=== PATIENT | male | born 1985 | race Caucasian/White ===

== ENCOUNTER 2022-08-15 14:00 | Emergency (ER) | payer OTHER ==
[2022-08-15 15:18] VITALS: TEMP 98.5
--- NOTE | 2022-08-15 16:54 | XR ---
EXAMINATION TYPE: XR knee complete LT DATE OF EXAM: 08/15/2022 4:46 PM INDICATION: Patient age:Male; 37 years old; Reason for study: knee pain post fall; COMPARISON: None. TECHNIQUE: The Left knee(s) was examined in Frontal, lateral and oblique projections. FINDINGS: No evidence of any acute osseous pathology, joint space narrowing, soft tissue swelling, or joint effusion is noted. IMPRESSION: 1. No acute osseous pathology. .
--- NOTE | 2022-08-15 17:55 | ED ---
General Adult HPI - General Chief complaint: Head Injury Stated complaint: fall - head injury Time Seen by Provider: 08/15/22 16:11 Source: patient Mode of arrival: ambulatory Limitations: no limitations - History of Present Illness Initial comments: Patient is a 37-year-old male presenting for evaluation of fall that occurred yesterday. Patient states that when he was getting out of the shower he slipped and hit his head on the toilet. Patient admits to brief loss of consciousness and a laceration to scalp. At time of presentation laceration is not bleeding, fully scabbed over. Patient is also complaining of pain to the left knee. No use of blood thinners. No nausea, vomiting, dizziness, neck pain or stiffness, numbness, tingling, weakness, difficulty with ambulation, vision or hearing changes, chest pain, difficulty breathing, abdominal pain, joint swelling. - Related Data Allergies Allergy/AdvReac Type Severity Reaction Status Date / Time No Known Allergies Allergy Verified 08/15/22 15:18 Review of Systems ROS Statement: Those systems with pertinent positive or pertinent negative responses have been documented in the HPI. ROS Other: All systems not noted in ROS Statement are negative. Past Medical History Past Medical History: Asthma History of Any Multi-Drug Resistant Organisms: None Reported Past Surgical History: No Surgical Hx Reported Past Psychological History: No Psychological Hx Reported Smoking Status: Current every day smoker Past Alcohol Use History: None Reported Past Drug Use History: None Reported General Exam Limitations: no limitations General appearance: alert, in no apparent distress Expanded Head exam: Present: laceration (One-inch laceration to the scalp). Absent: raccoon eyes, ayala's sign Eye exam: Present: normal appearance, PERRL, EOMI. Absent: scleral icterus, conjunctival injection, periorbital swelling Pupils: Present: normal accommodation Neck exam: Present: normal inspection, full ROM. Absent: tenderness Respiratory exam: Present: normal lung sounds bilaterally. Absent: respiratory distress, wheezes, rales, rhonchi, stridor Cardiovascular Exam: Present: regular rate, normal rhythm, normal heart sounds. Absent: systolic murmur, diastolic murmur, rubs, gallop, clicks Neurological exam: Present: alert, oriented X3, CN II-XII intact Expanded Patient oriented to: Present: person, place, time Speech: Present: fluid speech Cranial nerves: EOM's Intact: Normal, Tongue Deviation: Normal, Facial Sensation: Normal Sensory exam: Upper Extremity Light Touch: Normal, Lower Extremity Light Touch: Normal Motor strength exam: RUE: 5, LUE: 5, RLE: 5, LLE: 5 Eye Response: (4) open spontaneously Motor Response: (6) obeys commands Verbal Response: (5) oriented Rebecca Total: 15 Psychiatric exam: Present: normal affect, normal mood Skin exam: Present: warm, dry, intact, normal color. Absent: rash Course Vital Signs 08/15/22 08/15/22 15:16 19:10 Temperature 98.5 F Pulse Rate 67 74 Respiratory 20 16 Rate Blood Pressure 111/66 122/74 O2 Sat by Pulse 99 98 Oximetry Medical Decision Making - Medical Decision Making Patient is a 37-year-old male presenting for evaluation post fall. He is complaining of left knee pain as well as a laceration to the scalp. Evaluation there is a one-inch laceration to the scalp, no currently and cannot see at this time due to stabbing. On neurological exam there are no focal deficits, GCS 15, no focal weakness, extraocular motions are intact, PERRLA, full strength and sensation in all extremities, full facial movements and sensation intact. Meagher head CT rules states that CT is necessary at this time. X-ray was obtained of the knee which shows no acute osseous pathology, I agree with this on my interpretation. Patient is educated on knee sprain and supportive treatment. Educated on alarms symptoms following head injury. Follow-up with PCP. Report back to ER with any new or worsening symptoms. Discussed return parameters and answered all questions. Patient conveyed verbal understanding and agreed to the plan. I discussed this case in detail with my attending Dr. Waggoner. Disposition Clinical Impression: Knee sprain, Head injury Disposition: HOME SELF-CARE Condition: Good Instructions (If sedation given, give patient instructions): Knee Sprain (ED), Head Injury (ED) Additional Instructions: Up with PCP. Report back to ER with any new or worsening symptoms. Take Motrin and Tylenol as needed for pain control. Rest, ice, compress, elevate the knee as needed. Is patient prescribed a controlled substance at d/c from ED?: No Referrals: None,Stated [Primary Care Provider] - 1-2 days Time of Disposition: 17:55
[2022-08-15 19:12] VITALS: BP 122/74; PULSE 74; RESP 16
== END 2022-08-15 19:12 | disposition home or self-care (01) ==
LOC: EC 14:00
DX: S83.92XA Sprain of unspecified site of left knee, initial encounter (principal); S09.90XA Unspecified injury of head, initial encounter; J45.909 Unspecified asthma, uncomplicated; F17.200 Nicotine dependence, unspecified, uncomplicated; W01.0XXA Fall on same level from slipping, tripping and stumbling without subsequent striking against object, initial encounter; Y92.002 Bathroom of unspecified non-institutional (private) residence as the place of occurrence of the external cause
CPT/HCPCS: 99283